=== PATIENT | female | born 1955 | race Caucasian/White ===

== ENCOUNTER 2022-09-12 19:42 | Inpatient (IN) | payer OTHER ==
[~2022-09-12 19:42] MED LIST: Heparin 1,000 UNITS/ML VIAL ONE
[2022-09-12] MEDS ORDERED: Bupivacaine PF 0.5% 30 ML VIAL ONE (20:21)
[2022-09-12] MEDS ORDERED: Bacitracin Zinc Ointment 30 gm TUBE ONE (20:21)
[2022-09-12] MEDS ORDERED: Neomycin-Polymyxin 1 ML AMP ONE (20:21)
[2022-09-12] MEDS ORDERED: Midazolam HCl 2 mg/2 ml Vial ONE (20:25)
[2022-09-12] MEDS ORDERED: fentaNYL PF 100 MCG/2 ML SYRINGE ONE (20:26)
[2022-09-12] MEDS ORDERED: Ondansetron PF 4 MG/2 ML Vial ONE (21:16)
[2022-09-12] MEDS ORDERED: PROPOFOL 200 MG/20 ML VIAL ONE (21:16)
[2022-09-12] MEDS ORDERED: Ketorolac Tromethamine 30 MG/ML VIAL ONE (21:16)
[2022-09-12] MEDS ORDERED: Phenylephrine 10 MG/ML VIAL ONE (21:16)
[2022-09-12] MEDS ORDERED: Ondansetron ODT 4 MG TAB PO PRN (21:41)
[2022-09-12] MEDS ORDERED: Senokot S 8.6-50 MG TAB PO PRN (21:41)
[2022-09-12] MEDS ORDERED: Acetaminophen 325 MG TAB PO PRN (21:41)
[2022-09-12] MEDS ORDERED: Piperacillin/Tazobactam 4.5 GM in Sodium Chloride 0.9% 100 ML IVPB SCH (22:00)
[2022-09-12] MEDS ORDERED: TETANUS, DIPHTHERIA TOX,ADULT (TDVAX) 0.5 ML VIAL IM ONE (22:39)
[2022-09-12] MEDS ORDERED: Milk Of Magnesia 30 ML UDCUP PO PRN (22:39)
[2022-09-12] MEDS ORDERED: Promethazine HCl 25 MG/ML VIAL IM PRN (22:39)
[2022-09-12] MEDS ORDERED: Bisacodyl 10 MG SUPP PR PRN (22:39)
[2022-09-12] MEDS ORDERED: traMADol HCl 50 MG TAB PO PRN (22:39)
[2022-09-12] MEDS ORDERED: Ondansetron PF 4 MG/2 ML Vial IVP PRN (22:39)
[2022-09-12] MEDS ORDERED: Meperidine HCl/PF 25 MG/ML VIAL IM PRN (22:42)
[2022-09-12] MEDS ORDERED: Communication Order-Pharmacy FS PRN (22:45)
[2022-09-12 22:51] LABS: #Eosinphils 0.1 thou/uL (0.0-0.7); #Lymphocytes 0.8 thou/uL (1.20-3.40); #Monocytes 1.2 thou/uL (0.11-0.59); #Neutrophils 12.7 thou/uL (1.40-6.50); %Lymphocytes 5.2 % (21.0-51.0); %Monocytes 8.1 % (0.0-10.0); %Neutrophils 85.7 % (42.0-75.0); Hemoglobin 12.1 g/dL (12.0-16.0); Mean Corpuscular HGB CONC 31.8 g/dL (32.0-36.0); Mean Corpuscular Hemoglobin 31.6 pg (27.0-31.0); Mean Corpuscular Volume 99.4 fl (78.0-98.0); Mean Platelet Volume 7.4 fL (7.4-10.4); Platelet Count 263 10x3/uL (130-400); RBC Distribution Width 13.1 % (11.5-14.5); Red Blood Cell (RBC) Count 3.84 mill/uL (4.20-5.40); White Blood Cell (WBC) Count 14.9 10x3/uL (4.8-10.8)
[2022-09-12] MEDS ORDERED: Aspirin 81 mg Enteric Coated Tablet PO SCH (23:00)
[2022-09-12 23:07] LABS: Anion Gap 13 mmol/L (10-20); BUN (Urea Nitrogen) 18 mg/dL (9.8-20.1); Calc. Creatinine Clearance 0 mL/min (70-130); Calcium 8.4 mg/dL (7.8-10.44); Carbon Dioxide 22 mmol/L (23-31); Chloride 101 mmol/L (98-107); Estimated GFR 87; Glucose 113 mg/dL (80-115); Potassium 3.9 mmol/L (3.5-5.1); Sodium 132 mmol/L (136-145)
[2022-09-12 23:40] LABS: MDiff Complete? YES
[2022-09-12 23:41] LABS: Band 30 % (5-11); Hypochromia SLIGHT = 6-15 cells (100X) (0-5/hpf); Lymphocytes 8 % (21-51); Macrocytosis SLIGHT = 6-15 cells (100X) (0-5/hpf); Monocytes 7 % (0-10); Neutrophil 55 % (42-75); Ovalocytes SLIGHT = 2-5 cells (100X) (0-1/hpf); Platelet Morphology Comment Appears Adequate; Polychromasia SLIGHT = 2-3 cells (100X) (0-2/hpf)
[2022-09-12 23:47] VITALS: BMI 21.5
[2022-09-12] MEDS ORDERED: Dextrose 50% Abboject 50 ML SYRINGE SLOW IVP PRN (23:52)
[2022-09-12] MEDS ORDERED: HumaLOG 300 UNITS/3 ML VIAL SC PRN (23:52)
[2022-09-12] MEDS ORDERED: Dextrose 5% in Water 1,000 ML IV PRN (23:52)
[2022-09-13] MEDS ORDERED: Pen G 2.5 MILL.UNITS/50 ML BAG IVPB SCH (01:00)
[2022-09-13] MEDS: Penicillin G Potassium 2.5 MILL.UNITS in Sodium Chloride 0.9% 50 ML IVPB SCH ×6 (01:02→21:11)
[2022-09-13] MEDS ORDERED: Morphine 4 MG/ML VIAL ONE ×2 (01:04→14:01)
[2022-09-13] MEDS: Morphine 4 MG/ML VIAL SLOW IVP PRN ×2 (01:05→14:02)
[2022-09-13] MEDS ORDERED: Promethazine HCl 25 MG/ML VIAL ONE (01:14)
[2022-09-13] MEDS ORDERED: HYDROcodone/Acetaminophen 5/325 mg Tablet ONE ×3 (01:16→08:44)
[2022-09-13] MEDS: HYDROcodone/Acetaminophen 5/325 mg Tablet PO PRN ×4 (01:19→18:31)
[2022-09-13] MEDS: Vancomycin 1 GM in Premix Bag 1 BAG IVPB SCH (01:55)
[2022-09-13] MEDS ORDERED: Ketorolac Tromethamine 30 MG/ML VIAL ONE (04:54)
[2022-09-13] MEDS: Ketorolac Tromethamine 30 MG/ML VIAL IVP PRN ×2 (04:55→16:13)
[2022-09-13] MEDS: Gentamicin 80 MG/2 ML VIAL IM SCH ×3 (05:46→21:12)
[2022-09-13] MEDS ORDERED: FENTANYL 50 MCG/ML 1 ML VIAL ONE (07:31)
[2022-09-13 07:40] LABS: #Eosinphils 0.2 thou/uL (0.0-0.7); #Lymphocytes 0.7 thou/uL (1.20-3.40); #Monocytes 0.8 thou/uL (0.11-0.59); %Eosinophils 1.7 % (0.0-10.0); %Lymphocytes 5.4 % (21.0-51.0); %Monocytes 6.2 % (0.0-10.0); %Neutrophils 86.7 % (42.0-75.0); Mean Corpuscular HGB CONC 31.7 g/dL (32.0-36.0); Mean Corpuscular Hemoglobin 31.3 pg (27.0-31.0); Mean Corpuscular Volume 98.9 fl (78.0-98.0); Mean Platelet Volume 7.2 fL (7.4-10.4); Platelet Count 253 10x3/uL (130-400); RBC Distribution Width 13.1 % (11.5-14.5); White Blood Cell (WBC) Count 12.7 10x3/uL (4.8-10.8)
[2022-09-13] MEDS: FENTANYL 50 MCG/ML 1 ML VIAL SLOW IVP PRN (07:53)
[2022-09-13] MEDS ORDERED: traMADol HCl 50 MG TAB ONE (07:56)
[2022-09-13] MEDS ORDERED: Aspirin Chewable 81 MG TAB ONE (07:57)
[2022-09-13] MEDS ORDERED: Famotidine 20 MG TAB ONE (08:17)
[2022-09-13] MEDS: Aspirin 81 mg Enteric Coated Tablet PO SCH ×2 (08:47→20:10)
[2022-09-13] MEDS ORDERED: VANCOMYCIN 1.25 GM/250 ML BAG 1.25 GM in Premix Bag 1 BAG IVPB SCH (09:00)
[2022-09-13] MEDS ORDERED: Vancomycin 1.25 GM in Premix Bag 1 BAG IVPB SCH (09:00)
[2022-09-13] MEDS ORDERED: Famotidine 20 MG TAB PO SCH (09:00)
[2022-09-13] MEDS: Gabapentin 400 MG CAP PO SCH ×2 (14:03→20:10)
[2022-09-13] MEDS: Atorvastatin Calcium 20 MG TAB PO SCH (20:10)
[2022-09-14] MEDS: Penicillin G Potassium 2.5 MILL.UNITS in Sodium Chloride 0.9% 50 ML IVPB SCH ×5 (01:15→17:38)
[2022-09-14] MEDS: Vancomycin 1 GM in Premix Bag 1 BAG IVPB SCH (02:05)
[2022-09-14] MEDS: Gentamicin 80 MG/2 ML VIAL IM SCH ×2 (05:26→13:10)
[2022-09-14] MEDS: Levothyroxine Sodium 50 MCG TAB PO SCH (05:26)
[2022-09-14] MEDS: Ketorolac Tromethamine 30 MG/ML VIAL IVP PRN ×3 (05:26→20:00)
[2022-09-14 05:57] LABS: Anion Gap 12 mmol/L (10-20); BUN (Urea Nitrogen) 11 mg/dL (9.8-20.1); Calc. Creatinine Clearance 71 mL/min (70-130); Calcium 8.7 mg/dL (7.8-10.44); Carbon Dioxide 26 mmol/L (23-31); Chloride 104 mmol/L (98-107); Estimated GFR 96; Glucose 99 mg/dL (80-115); Magnesium 1.8 mg/dL (1.6-2.6); Potassium 4.4 mmol/L (3.5-5.1); Sodium 138 mmol/L (136-145)
[2022-09-14 07:48] LABS: Hemoglobin 11.9 g/dL (12.0-16.0); Mean Corpuscular HGB CONC 32.3 g/dL (32.0-36.0); Mean Corpuscular Hemoglobin 31.4 pg (27.0-31.0); Mean Corpuscular Volume 97.2 fl (78.0-98.0); Mean Platelet Volume 7.3 fL (7.4-10.4); Platelet Count 260 10x3/uL (130-400); RBC Distribution Width 13.1 % (11.5-14.5); White Blood Cell (WBC) Count 13.3 10x3/uL (4.8-10.8)
[2022-09-14 08:19] LABS: Band 23 % (5-11); Eosinophils 1 % (0-10); Lymphocytes 9 % (21-51); MDiff Complete? YES; Monocytes 2 % (0-10); Neutrophil 64 % (42-75); Platelet Morphology Comment Appears Adequate; Polychromasia SLIGHT = 2-3 cells (100X) (0-2/hpf)
[2022-09-14] MEDS: Gabapentin 400 MG CAP PO SCH ×3 (08:29→20:01)
[2022-09-14] MEDS: DULoxetine 60 MG CAP PO SCH (08:29)
[2022-09-14] MEDS: Aspirin 81 mg Enteric Coated Tablet PO SCH ×2 (08:30→20:00)
[2022-09-14] MEDS: Lisinopril 2.5 MG TAB PO SCH (08:32)
[2022-09-14] MEDS: Atorvastatin Calcium 20 MG TAB PO SCH (20:01)
[2022-09-14] MEDS: HumaLOG 300 UNITS/3 ML VIAL SC PRN (20:36)
[2022-09-14] MEDS: Penicillin G Potassium 4 MILL.UNITS in Sodium Chloride 0.9% 50 ML IVPB SCH (21:06)
[2022-09-14] MEDS: Clindamycin/D5W 600 MG in Premix Bag 1 BAG IVPB SCH (21:06)
[2022-09-14] MEDS: FENTANYL 50 MCG/ML 1 ML VIAL SLOW IVP PRN (22:41)
[2022-09-15] MEDS: Penicillin G Potassium 4 MILL.UNITS in Sodium Chloride 0.9% 50 ML IVPB SCH ×6 (01:07→21:53)
[2022-09-15 01:22] LABS: Vancomycin, Trough 3.4 ug/mL
[2022-09-15] MEDS: Clindamycin/D5W 600 MG in Premix Bag 1 BAG IVPB SCH ×3 (05:12→21:53)
[2022-09-15] MEDS: Levothyroxine Sodium 50 MCG TAB PO SCH (06:45)
[2022-09-15 08:18] LABS: #Eosinphils 0.3 thou/uL (0.0-0.7); #Lymphocytes 0.8 thou/uL (1.20-3.40); #Monocytes 0.7 thou/uL (0.11-0.59); #Neutrophils 7.2 thou/uL (1.40-6.50); %Basophils 0.3 % (0.0-1.0); %Lymphocytes 8.6 % (21.0-51.0); %Monocytes 8.2 % (0.0-10.0); Hemoglobin 11.9 g/dL (12.0-16.0); Mean Corpuscular HGB CONC 31.9 g/dL (32.0-36.0); Mean Corpuscular Hemoglobin 31.1 pg (27.0-31.0); Mean Corpuscular Volume 97.5 fl (78.0-98.0); Mean Platelet Volume 6.9 fL (7.4-10.4); Platelet Count 290 10x3/uL (130-400); RBC Distribution Width 13.2 % (11.5-14.5); Red Blood Cell (RBC) Count 3.84 mill/uL (4.20-5.40); White Blood Cell (WBC) Count 8.9 10x3/uL (4.8-10.8)
[2022-09-15] MEDS: Aspirin 81 mg Enteric Coated Tablet PO SCH ×2 (08:43→21:54)
[2022-09-15] MEDS: DULoxetine 60 MG CAP PO SCH (08:43)
[2022-09-15] MEDS: Lisinopril 2.5 MG TAB PO SCH (08:43)
[2022-09-15] MEDS: Gabapentin 400 MG CAP PO SCH ×3 (08:43→21:53)
[2022-09-15] MEDS: Morphine 4 MG/ML VIAL SLOW IVP PRN (09:09)
[2022-09-15] MEDS ORDERED: Clindamycin/D5W 600 mg/50 ml Premix Bag ONE (13:52)
[2022-09-15] MEDS ORDERED: Bacitracin Zinc Ointment 30 gm TUBE ONE (14:35)
[2022-09-15] MEDS ORDERED: Bupivacaine PF 0.5% 30 ML VIAL ONE (14:35)
[2022-09-15] MEDS ORDERED: Midazolam HCl 2 mg/2 ml Vial ONE (14:55)
[2022-09-15] MEDS ORDERED: fentaNYL PF 100 MCG/2 ML SYRINGE ONE (15:35)
[2022-09-15] MEDS ORDERED: Dexamethasone 20 MG/5 ML VIAL ONE (15:46)
[2022-09-15] MEDS ORDERED: Ondansetron PF 4 MG/2 ML Vial ONE (15:46)
[2022-09-15] MEDS ORDERED: PROPOFOL 200 MG/20 ML VIAL ONE (15:46)
[2022-09-15] MEDS ORDERED: Ketorolac Tromethamine 30 MG/ML VIAL IVP SCH (16:30)
[2022-09-15] MEDS ORDERED: FENTANYL 50 MCG/ML 1 ML VIAL ONE (16:34)
[2022-09-15] MEDS ORDERED: Ketorolac Tromethamine 30 MG/ML VIAL ONE (16:34)
[2022-09-15] MEDS: Ketorolac Tromethamine 30 MG/ML VIAL IVP PRN (18:12)
[2022-09-15] MEDS: FENTANYL 50 MCG/ML 1 ML VIAL SLOW IVP PRN (21:53)
[2022-09-15] MEDS: Atorvastatin Calcium 20 MG TAB PO SCH (21:54)
[2022-09-15] MEDS: HumaLOG 300 UNITS/3 ML VIAL SC PRN (21:54)
[2022-09-16] MEDS: Penicillin G Potassium 4 MILL.UNITS in Sodium Chloride 0.9% 50 ML IVPB SCH ×6 (01:53→20:24)
[2022-09-16] MEDS: Ketorolac Tromethamine 30 MG/ML VIAL IVP PRN ×3 (01:59→16:03)
[2022-09-16] MEDS: Clindamycin/D5W 600 MG in Premix Bag 1 BAG IVPB SCH ×3 (05:16→21:35)
[2022-09-16] MEDS: Levothyroxine Sodium 50 MCG TAB PO SCH (05:17)
[2022-09-16] MEDS: Lisinopril 2.5 MG TAB PO SCH (09:02)
[2022-09-16] MEDS: Aspirin 81 mg Enteric Coated Tablet PO SCH ×2 (09:02→20:23)
[2022-09-16] MEDS: DULoxetine 60 MG CAP PO SCH (09:02)
[2022-09-16] MEDS: Gabapentin 400 MG CAP PO SCH ×3 (09:02→20:24)
[2022-09-16] MEDS: Morphine 4 MG/ML VIAL SLOW IVP PRN (09:28)
[2022-09-16] MEDS: Atorvastatin Calcium 20 MG TAB PO SCH (20:23)
[2022-09-16] MEDS: HYDROcodone/Acetaminophen 5/325 mg Tablet PO PRN (20:28)
[2022-09-17] MEDS: Ketorolac Tromethamine 30 MG/ML VIAL IVP PRN ×3 (03:09→21:01)
[2022-09-17] MEDS: Clindamycin/D5W 600 MG in Premix Bag 1 BAG IVPB SCH ×3 (05:14→21:00)
[2022-09-17] MEDS: Levothyroxine Sodium 50 MCG TAB PO SCH (05:14)
[2022-09-17] MEDS: HYDROcodone/Acetaminophen 5/325 mg Tablet PO PRN ×3 (05:20→21:00)
[2022-09-17] MEDS: Gabapentin 400 MG CAP PO SCH ×3 (10:10→21:01)
[2022-09-17] MEDS: Lisinopril 2.5 MG TAB PO SCH (10:10)
[2022-09-17] MEDS: DULoxetine 60 MG CAP PO SCH (10:10)
[2022-09-17] MEDS: Aspirin 81 mg Enteric Coated Tablet PO SCH ×2 (10:11→21:00)
[2022-09-17] MEDS: Morphine 4 MG/ML VIAL SLOW IVP PRN (10:44)
[2022-09-17 11:09] LABS: Anion Gap 10 mmol/L (10-20); BUN (Urea Nitrogen) 12 mg/dL (9.8-20.1); Calc. Creatinine Clearance 74 mL/min (70-130); Calcium 8.9 mg/dL (7.8-10.44); Carbon Dioxide 27 mmol/L (23-31); Chloride 102 mmol/L (98-107); Estimated GFR 98; Glucose 108 mg/dL (80-115); Potassium 4.3 mmol/L (3.5-5.1); Sodium 135 mmol/L (136-145)
[2022-09-17 11:27] LABS: Band 8 % (5-11); Eosinophils 4 % (0-10); Hemoglobin 11.5 g/dL (12.0-16.0); Lymphocytes 8 % (21-51); MDiff Complete? YES; Mean Corpuscular HGB CONC 31.9 g/dL (32.0-36.0); Mean Corpuscular Hemoglobin 31.1 pg (27.0-31.0); Mean Corpuscular Volume 97.3 fl (78.0-98.0); Mean Platelet Volume 6.9 fL (7.4-10.4); Metamyelocyte 2 % (0-0); Monocytes 22 % (0-10); Myelocyte 1 % (0-0); Neutrophil 49 % (42-75); Platelet Count 340 10x3/uL (130-400); Platelet Morphology Comment Appears Adequate; Polychromasia SLIGHT = 2-3 cells (100X) (0-2/hpf); RBC Distribution Width 12.9 % (11.5-14.5); Reactive Lymphocytes 3 % (0-10); Target Cells SLIGHT = 2-5 cells (100X) (0-1/hpf)
[2022-09-17] MEDS: Atorvastatin Calcium 20 MG TAB PO SCH (21:00)
[2022-09-18] MEDS: HYDROcodone/Acetaminophen 5/325 mg Tablet PO PRN ×2 (03:30→11:18)
[2022-09-18] MEDS: Levothyroxine Sodium 50 MCG TAB PO SCH (05:55)
[2022-09-18] MEDS: Clindamycin/D5W 600 MG in Premix Bag 1 BAG IVPB SCH ×4 (05:55→23:11)
[2022-09-18] MEDS: Acetaminophen/Codeine 30-300mg Tablet PO PRN ×2 (08:33→21:29)
[2022-09-18] MEDS: Lisinopril 2.5 MG TAB PO SCH (08:34)
[2022-09-18] MEDS: Gabapentin 400 MG CAP PO SCH ×3 (08:35→21:21)
[2022-09-18] MEDS: Aspirin 81 mg Enteric Coated Tablet PO SCH ×2 (08:35→21:22)
[2022-09-18] MEDS: DULoxetine 60 MG CAP PO SCH (08:36)
[2022-09-18] MEDS ORDERED: Bupivacaine PF 0.5% 30 ML VIAL ONE (16:17)
[2022-09-18] MEDS ORDERED: Bacitracin Zinc Ointment 30 gm TUBE ONE (16:17)
[2022-09-18] MEDS ORDERED: Neomycin-Polymyxin 1 ML AMP ONE (16:17)
[2022-09-18] MEDS ORDERED: Mineral Oil Sterile 10 ML VIAL ONE (16:17)
[2022-09-18] MEDS ORDERED: Penicillin G Potassium 4,000,000 UNITS in Syringe 0 ML IVPB SCH (17:00)
[2022-09-18] MEDS ORDERED: fentaNYL PF 100 MCG/2 ML SYRINGE ONE (17:26)
[2022-09-18] MEDS ORDERED: ePHEDrine 50 MG/ML VIAL ONE (17:41)
[2022-09-18] MEDS ORDERED: PROPOFOL 200 MG/20 ML VIAL ONE (17:41)
[2022-09-18] MEDS ORDERED: FENTANYL 50 MCG/ML 1 ML VIAL ONE ×3 (18:39→19:23)
[2022-09-18] MEDS: Morphine 4 MG/ML VIAL SLOW IVP PRN (20:06)
[2022-09-18] MEDS: Penicillin G Potassium 4 MILL.UNITS in Sodium Chloride 0.9% 100 ML IVPB SCH ×2 (21:05→21:26)
[2022-09-18] MEDS: Atorvastatin Calcium 20 MG TAB PO SCH (21:22)
[2022-09-19] MEDS: Penicillin G Potassium 4 MILL.UNITS in Sodium Chloride 0.9% 100 ML IVPB SCH ×6 (01:10→20:51)
[2022-09-19] MEDS: FENTANYL 50 MCG/ML 1 ML VIAL SLOW IVP PRN (01:13)
[2022-09-19] MEDS: Levothyroxine Sodium 50 MCG TAB PO SCH (06:15)
[2022-09-19] MEDS: Clindamycin/D5W 600 MG in Premix Bag 1 BAG IVPB SCH ×3 (06:15→20:50)
[2022-09-19] MEDS: Acetaminophen/Codeine 30-300mg Tablet PO PRN ×4 (06:25→17:57)
[2022-09-19] MEDS: DULoxetine 60 MG CAP PO SCH (08:12)
[2022-09-19] MEDS: Aspirin 81 mg Enteric Coated Tablet PO SCH ×2 (08:12→20:51)
[2022-09-19] MEDS: Lisinopril 2.5 MG TAB PO SCH (08:12)
[2022-09-19] MEDS: Gabapentin 400 MG CAP PO SCH ×3 (08:13→20:51)
[2022-09-19] MEDS: Atorvastatin Calcium 20 MG TAB PO SCH (20:51)
[2022-09-20] MEDS: Penicillin G Potassium 4 MILL.UNITS in Sodium Chloride 0.9% 100 ML IVPB SCH ×3 (00:01→08:36)
[2022-09-20] MEDS: Clindamycin/D5W 600 MG in Premix Bag 1 BAG IVPB SCH (05:24)
[2022-09-20] MEDS: Levothyroxine Sodium 50 MCG TAB PO SCH (05:25)
[2022-09-20] MEDS: Acetaminophen/Codeine 30-300mg Tablet PO PRN ×3 (05:29→10:06)
[2022-09-20 05:34] LABS: #Basophils 0.1 thou/uL (0.0-0.2); #Eosinphils 0.4 thou/uL (0.0-0.7); #Lymphocytes 1.7 thou/uL (1.20-3.40); #Monocytes 1.1 thou/uL (0.11-0.59); #Neutrophils 6.4 thou/uL (1.40-6.50); %Basophils 0.6 % (0.0-1.0); %Lymphocytes 17.4 % (21.0-51.0); Hemoglobin 12.2 g/dL (12.0-16.0); Mean Corpuscular HGB CONC 32.1 g/dL (32.0-36.0); Mean Corpuscular Hemoglobin 31.1 pg (27.0-31.0); Mean Corpuscular Volume 96.9 fl (78.0-98.0); Mean Platelet Volume 6.9 fL (7.4-10.4); Platelet Count 408 10x3/uL (130-400); RBC Distribution Width 13.1 % (11.5-14.5); Red Blood Cell (RBC) Count 3.94 mill/uL (4.20-5.40); White Blood Cell (WBC) Count 9.6 10x3/uL (4.8-10.8)
[2022-09-20 05:55] LABS: Anion Gap 13 mmol/L (10-20); BUN (Urea Nitrogen) 9 mg/dL (9.8-20.1); Calc. Creatinine Clearance 71 mL/min (70-130); Calcium 9.3 mg/dL (7.8-10.44); Carbon Dioxide 28 mmol/L (23-31); Chloride 101 mmol/L (98-107); Estimated GFR 96; Glucose 114 mg/dL (80-115); Potassium 4.9 mmol/L (3.5-5.1); Sodium 137 mmol/L (136-145)
[2022-09-20 08:18] VITALS: BP 101/66; TEMP 97.6
[2022-09-20] MEDS: Lisinopril 2.5 MG TAB PO SCH (08:36)
[2022-09-20] MEDS: Aspirin 81 mg Enteric Coated Tablet PO SCH (08:36)
[2022-09-20] MEDS: DULoxetine 60 MG CAP PO SCH (08:36)
[2022-09-20] MEDS: Gabapentin 400 MG CAP PO SCH (08:37)
== END 2022-09-20 10:15 | disposition home or self-care (01) | DRG 501 ==
LOC: ERS 19:42 → SDC 20:13 → PACU-TCU 23:11 → SJJU 09-13 15:21
PROVIDERS: ADMIT Internal Medicine; ATTEND Internal Medicine
PROC: 0LB80ZZ Excision of Left Hand Tendon, Open Approach (ICD-10-PCS; principal; 2022-09-12)
PROC: 01N50ZZ Release Median Nerve, Open Approach (ICD-10-PCS; 2022-09-12)
PROC: 02HV33Z Insertion of Infusion Device into Superior Vena Cava, Percutaneous Approach (ICD-10-PCS; 2022-09-13)
PROC: B548ZZA Ultrasonography of Superior Vena Cava, Guidance (ICD-10-PCS; 2022-09-13)
PROC: 0HRGXK3 Replacement of Left Hand Skin with Nonautologous Tissue Substitute, Full Thickness, External Approach (ICD-10-PCS; 2022-09-18)
PROC: 0KBB0ZZ Excision of Left Lower Arm and Wrist Muscle, Open Approach (ICD-10-PCS; 2022-09-18)
PROC: 0KBD0ZZ Excision of Left Hand Muscle, Open Approach (ICD-10-PCS; 2022-09-18)
DX: M65.842 Other synovitis and tenosynovitis, left hand (principal); E87.1 Hypo-osmolality and hyponatremia; L02.512 Cutaneous abscess of left hand; T82.868A Thrombosis due to vascular prosthetic devices, implants and grafts, initial encounter; I82.612 Acute embolism and thrombosis of superficial veins of left upper extremity; Y84.8 Other medical procedures as the cause of abnormal reaction of the patient, or of later complication, without mention of misadventure at the time of the procedure; G56.02 Carpal tunnel syndrome, left upper limb; E11.9 Type 2 diabetes mellitus without complications; B95.0 Streptococcus, group A, as the cause of diseases classified elsewhere; Z79.899 Other long term (current) drug therapy; Z79.1 Long term (current) use of non-steroidal anti-inflammatories (NSAID); Z79.890 Hormone replacement therapy
CPT/HCPCS: 36415; 36416; 36569; 80048; 80202; 83735; 84443; 85025; 87070; 87077; 87205; 90714; 97139; 99284; C1751; C9363-KX-JC; J1100; J1580; J1644; J1885; J2250; J2270; J2370; J2405; J2540; J2550; J2704; J3010; J3370; J3490; S0020; U0003; U0005

== ENCOUNTER 2022-10-10 12:54 | Day surgery (SDC) | payer OTHER ==
[2022-10-05 11:51] VITALS: BMI 21.5
[2022-10-10] MEDS ORDERED: Bacitracin Zinc Ointment 30 gm TUBE ONE (16:38)
[2022-10-10] MEDS ORDERED: Mineral Oil Sterile 10 ML VIAL ONE (16:38)
[2022-10-10] MEDS ORDERED: Thrombin 5000 UNITS/5 ML VIAL ONE (16:38)
[2022-10-10] MEDS ORDERED: Neomycin-Polymyxin 1 ML AMP ONE (16:38)
[2022-10-10] MEDS ORDERED: Bupivacaine 0.25% HCL 30 ML VIAL ONE (16:38)
[2022-10-10] MEDS ORDERED: Fentanyl 250 MCG/5 ML VIAL ONE (16:49)
[2022-10-10] MEDS ORDERED: Lidocaine 1% PF 5 ML VIAL ONE (17:08)
[2022-10-10] MEDS ORDERED: Ondansetron PF 4 MG/2 ML Vial ONE (17:08)
[2022-10-10] MEDS ORDERED: PROPOFOL 200 MG/20 ML VIAL ONE (17:08)
[2022-10-10] MEDS ORDERED: Dexamethasone 20 MG/5 ML VIAL ONE (17:08)
[2022-10-10] MEDS ORDERED: Ketorolac Tromethamine 30 MG/ML VIAL ONE (18:17)
[2022-10-10] MEDS ORDERED: HYDROcodone/Acetaminophen 5/325 mg Tablet ONE (19:10)
== END 2022-10-10 19:28 | disposition home or self-care (01) ==
LOC: SDC 12:54
PROVIDERS: ATTEND Orthopaedic Surgery Hand Surgery
PROC: 0HRGX74 Replacement of Left Hand Skin with Autologous Tissue Substitute, Partial Thickness, External Approach (ICD-10-PCS; principal; 2022-10-10)
DX: S61.201A Unspecified open wound of left index finger without damage to nail, initial encounter (principal); E11.9 Type 2 diabetes mellitus without complications; E78.00 Pure hypercholesterolemia, unspecified; Z85.810 Personal history of malignant neoplasm of tongue; Z87.891 Personal history of nicotine dependence; Z79.1 Long term (current) use of non-steroidal anti-inflammatories (NSAID); Z79.84 Long term (current) use of oral hypoglycemic drugs; Z79.890 Hormone replacement therapy; Z79.899 Other long term (current) drug therapy; Z98.890 Other specified postprocedural states
CPT/HCPCS: J1100; J1885; J2405; J2704; J3010; S0020

== ENCOUNTER 2022-11-06 14:18 | Inpatient (IN) | payer MEDICARE, OTHER ==
[2022-11-06 18:00] LABS: #Eosinphils 0.1 thou/uL (0.0-0.7); #Lymphocytes 1.1 thou/uL (1.20-3.40); #Monocytes 0.8 thou/uL (0.11-0.59); #Neutrophils 8.5 thou/uL (1.40-6.50); %Basophils 0.4 % (0.0-1.0); %Eosinophils 0.5 % (0.0-10.0); %Lymphocytes 10.2 % (21.0-51.0); %Monocytes 7.9 % (0.0-10.0); %Neutrophils 80.9 % (42.0-75.0); Hemoglobin 13.1 g/dL (12.0-16.0); Mean Corpuscular HGB CONC 32.6 g/dL (32.0-36.0); Mean Corpuscular Hemoglobin 32.6 pg (27.0-31.0); Mean Platelet Volume 6.5 fL (7.4-10.4); Platelet Count 351 10x3/uL (130-400); RBC Distribution Width 12.4 % (11.5-14.5); Red Blood Cell (RBC) Count 4.02 mill/uL (4.20-5.40); White Blood Cell (WBC) Count 10.5 10x3/uL (4.8-10.8)
[2022-11-06 19:29] LABS: SARS-CoV-2 NAA Rapid Test Not Detected (NotDetected)
[2022-11-07] MEDS ORDERED: Bacitracin 1 PK ONE (02:37)
[2022-11-07] MEDS ORDERED: Acetaminophen 500 MG TAB ONE (02:47)
[2022-11-07] MEDS ORDERED: Bacitracin Zinc Ointment 30 gm TUBE ONE (06:36)
[2022-11-07] MEDS ORDERED: Neomycin-Polymyxin 1 ML AMP ONE (06:36)
[2022-11-07] MEDS ORDERED: Bupivacaine PF 0.5% 30 ML VIAL ONE (06:36)
[2022-11-07] MEDS ORDERED: Fentanyl 100 MCG/2 ML VIAL SLOW IVP PRN (07:01)
[2022-11-07] MEDS ORDERED: fentaNYL PF 100 MCG/2 ML SYRINGE ONE ×2 (07:04)
[2022-11-07] MEDS ORDERED: Meperidine HCl/PF 25 MG/ML VIAL IM PRN (07:08)
[2022-11-07] MEDS ORDERED: Ondansetron PF 4 MG/2 ML Vial ONE (07:10)
[2022-11-07] MEDS ORDERED: Lidocaine 1% PF 5 ML VIAL ONE (07:10)
[2022-11-07] MEDS ORDERED: PROPOFOL 200 MG/20 ML VIAL ONE (07:10)
[2022-11-07] MEDS ORDERED: Fentanyl 250 MCG/5 ML VIAL ONE (08:01)
[2022-11-07] MEDS ORDERED: Vancomycin 1 GM/200 ML (FROZEN) BAG ONE (08:30)
[2022-11-07] MEDS ORDERED: TETANUS, DIPHTHERIA TOX,ADULT (TDVAX) 0.5 ML VIAL IM ONE (09:00)
[2022-11-07 09:42] VITALS: BMI 21.5
[2022-11-07] MEDS ORDERED: Morphine 4 MG/ML VIAL ONE (11:17)
[2022-11-07] MEDS ORDERED: HYDROcodone/Acetaminophen 5/325 mg Tablet ONE (11:22)
[2022-11-07] MEDS: Morphine 4 MG/ML VIAL SLOW IVP PRN (11:24)
[2022-11-07] MEDS: HYDROcodone/Acetaminophen 5/325 mg Tablet PO PRN ×3 (11:28→21:52)
[2022-11-07] MEDS: Aspirin 81 mg Enteric Coated Tablet PO SCH ×2 (12:39→19:52)
[2022-11-07] MEDS: Vancomycin 1 GM in Premix Bag 1 BAG IVPB SCH (20:03)
[2022-11-08] MEDS: HYDROcodone/Acetaminophen 5/325 mg Tablet PO PRN ×2 (02:08→12:43)
[2022-11-08 05:05] LABS: Vancomycin, Peak 16.2 ug/mL (20.0-40.0)
[2022-11-08] MEDS: Aspirin 81 mg Enteric Coated Tablet PO SCH ×2 (08:42→20:39)
[2022-11-08] MEDS: Ketorolac Tromethamine 30 MG/ML VIAL IVP PRN (08:42)
[2022-11-08] MEDS: Vancomycin 1 GM in Premix Bag 1 BAG IVPB SCH ×2 (09:10)
[2022-11-08] MEDS: Morphine 4 MG/ML VIAL SLOW IVP PRN (20:31)
[2022-11-08] MEDS: traMADol HCl 50 MG TAB PO PRN (20:39)
[2022-11-08 21:08] LABS: Vancomycin, Trough 12.5 ug/mL
[2022-11-08] MEDS ORDERED: SODIUM CHLORIDE IVPB SCH (21:30)
[2022-11-08] MEDS ORDERED: PENICILLIN POTASSIUM IVPB SCH (21:30)
[2022-11-08] MEDS ORDERED: Gentamicin Sulfate 80 MG in Premix Bag 1 BAG IVPB SCH (22:00)
[2022-11-09] MEDS: Vancomycin 1 GM in Premix Bag 1 BAG IVPB SCH ×3 (00:06→17:46)
[2022-11-09] MEDS: Acetaminophen/Codeine 30-300mg Tablet PO PRN ×2 (00:06→04:27)
[2022-11-09] MEDS ORDERED: SODIUM CHLORIDE IVPB SCH (01:00)
[2022-11-09] MEDS ORDERED: PENICILLIN POTASSIUM IVPB SCH (01:00)
[2022-11-09] MEDS: Gentamicin Sulfate 80 MG in Premix Bag 1 BAG IVPB SCH ×3 (04:34→21:01)
[2022-11-09] MEDS: PENICILLIN POTASSIUM IVPB SCH ×4 (06:46→17:46)
[2022-11-09] MEDS: SODIUM CHLORIDE IVPB SCH ×4 (06:46→17:46)
[2022-11-09 08:29] LABS: #Basophils 0.1 thou/uL (0.0-0.2); #Eosinphils 0.1 thou/uL (0.0-0.7); #Lymphocytes 1.2 thou/uL (1.20-3.40); #Monocytes 0.5 thou/uL (0.11-0.59); #Neutrophils 2.5 thou/uL (1.40-6.50); %Basophils 1.4 % (0.0-1.0); %Eosinophils 1.8 % (0.0-10.0); %Lymphocytes 27.8 % (21.0-51.0); %Monocytes 11.8 % (0.0-10.0); %Neutrophils 57.2 % (42.0-75.0); Hemoglobin 13.4 g/dL (12.0-16.0); Mean Corpuscular HGB CONC 32.7 g/dL (32.0-36.0); Mean Corpuscular Hemoglobin 32.6 pg (27.0-31.0); Mean Corpuscular Volume 99.8 fl (78.0-98.0); Mean Platelet Volume 6.7 fL (7.4-10.4); Platelet Count 367 10x3/uL (130-400); RBC Distribution Width 12.2 % (11.5-14.5); Red Blood Cell (RBC) Count 4.12 mill/uL (4.20-5.40); White Blood Cell (WBC) Count 4.3 10x3/uL (4.8-10.8)
[2022-11-09] MEDS: Aspirin 81 mg Enteric Coated Tablet PO SCH ×2 (09:07→21:01)
[2022-11-09] MEDS: HYDROcodone/Acetaminophen 5/325 mg Tablet PO PRN ×3 (09:09→21:02)
[2022-11-09] MEDS ORDERED: Ondansetron PF 4 MG/2 ML Vial IVP PRN (16:16)
[2022-11-09] MEDS ORDERED: Neomycin-Polymyxin 1 ML AMP ONE (17:48)
[2022-11-09] MEDS ORDERED: Bupivacaine PF 0.5% 30 ML VIAL ONE (17:48)
[2022-11-09] MEDS ORDERED: Bacitracin Zinc Ointment 30 gm TUBE ONE (17:48)
[2022-11-09] MEDS ORDERED: fentaNYL PF 100 MCG/2 ML SYRINGE ONE (17:49)
[2022-11-09] MEDS ORDERED: Famotidine/PF 20 mg/2ml Vial ONE (18:16)
[2022-11-09] MEDS ORDERED: PROPOFOL 200 MG/20 ML VIAL ONE (18:21)
[2022-11-09] MEDS ORDERED: Dexamethasone 20 MG/5 ML VIAL ONE (18:21)
[2022-11-09] MEDS ORDERED: Lidocaine 1% PF 5 ML VIAL ONE (18:21)
[2022-11-09] MEDS ORDERED: Metoclopramide HCl 10 MG/2 ML VIAL ONE (18:21)
[2022-11-09] MEDS ORDERED: ePHEDrine 50 MG/ML VIAL ONE (18:21)
[2022-11-09] MEDS ORDERED: Ondansetron PF 4 MG/2 ML Vial ONE (18:21)
[2022-11-09] MEDS ORDERED: Ondansetron HCl/PF 4 MG/2 ML Vial IVP PRN (19:06)
[2022-11-09] MEDS ORDERED: Meperidine HCl/PF 25 MG/ML VIAL SLOW IVP PRN (19:06)
[2022-11-09] MEDS ORDERED: Ketorolac Tromethamine 30 MG/ML VIAL IVP PRN (19:06)
[2022-11-09] MEDS ORDERED: Promethazine HCl 25 MG/ML VIAL IM PRN (19:06)
[2022-11-09] MEDS ORDERED: Morphine Sulfate 2 MG/ML SYRINGE SLOW IVP PRN (19:06)
[2022-11-09] MEDS ORDERED: HYDROmorphone 2 MG/ML VIAL SLOW IVP PRN (19:06)
[2022-11-09 20:34] LABS: Anion Gap 16 mmol/L (10-20); BUN (Urea Nitrogen) 14 mg/dL (9.8-20.1); Calc. Creatinine Clearance 62 mL/min (70-130); Calcium 9.3 mg/dL (7.8-10.44); Carbon Dioxide 21 mmol/L (23-31); Chloride 100 mmol/L (98-107); Estimated GFR 87; Glucose 269 mg/dL (80-115); Potassium 4.7 mmol/L (3.5-5.1); Sodium 132 mmol/L (136-145)
[2022-11-09] MEDS ORDERED: Pen G 2.5 MILL.UNITS/50 ML BAG IVPB SCH (21:00)
[2022-11-10] MEDS: Penicillin G Potassium 2.5 MILL.UNITS in Sodium Chloride 0.9% 50 ML IVPB SCH ×5 (00:46→14:32)
[2022-11-10] MEDS: Vancomycin 1 GM in Premix Bag 1 BAG IVPB SCH (06:37)
[2022-11-10] MEDS: Aspirin 81 mg Enteric Coated Tablet PO SCH ×2 (08:41→21:20)
[2022-11-10] MEDS: Famotidine 20 MG TAB PO SCH (08:41)
[2022-11-10] MEDS ORDERED: Vancomycin 1 GM in Premix Bag 1 BAG IVPB SCH (09:00)
[2022-11-10 09:14] LABS: Anion Gap 15 mmol/L (10-20); BUN (Urea Nitrogen) 13 mg/dL (9.8-20.1); Calc. Creatinine Clearance 63 mL/min (70-130); Calcium 9.7 mg/dL (7.8-10.44); Carbon Dioxide 20 mmol/L (23-31); Chloride 102 mmol/L (98-107); Estimated GFR 90; Glucose 156 mg/dL (80-115); Potassium 4.2 mmol/L (3.5-5.1); Sodium 133 mmol/L (136-145)
[2022-11-10] MEDS: Ketorolac Tromethamine 30 MG/ML VIAL IVP PRN (11:11)
[2022-11-10] MEDS: Morphine 4 MG/ML VIAL SLOW IVP PRN (17:42)
[2022-11-10 17:51] LABS: Anion Gap 13 mmol/L (10-20); BUN (Urea Nitrogen) 19 mg/dL (9.8-20.1); Calc. Creatinine Clearance 49 mL/min (70-130); Calcium 9.4 mg/dL (7.8-10.44); Carbon Dioxide 23 mmol/L (23-31); Chloride 101 mmol/L (98-107); Estimated GFR 66; Glucose 167 mg/dL (80-115); Sodium 133 mmol/L (136-145)
[2022-11-10] MEDS: Ertapenem 1 GM in Sodium Chloride 0.9% 100 ML IVPB SCH (18:29)
[2022-11-10] MEDS ORDERED: Dextrose 5% in Water 1,000 ML IV PRN (19:45)
[2022-11-10] MEDS ORDERED: Dextrose 50% Abboject 50 ML SYRINGE IVP PRN (19:45)
[2022-11-10] MEDS ORDERED: Insulin Regular 300 UNITS/3 ML VIAL SC PRN (19:45)
[2022-11-10] MEDS: traMADol HCl 50 MG TAB PO PRN (23:59)
[2022-11-11] MEDS: Famotidine 20 MG TAB PO SCH (07:53)
[2022-11-11] MEDS: DULoxetine 30 MG CAP PO SCH (07:53)
[2022-11-11] MEDS: Aspirin 81 mg Enteric Coated Tablet PO SCH ×2 (07:54→20:18)
[2022-11-11] MEDS: Acetaminophen/Codeine 30-300mg Tablet PO PRN ×2 (08:04→20:18)
[2022-11-11] MEDS: Morphine 4 MG/ML VIAL SLOW IVP PRN (15:27)
[2022-11-11] MEDS: Ertapenem 1 GM in Sodium Chloride 0.9% 100 ML IVPB SCH (18:29)
[2022-11-12] MEDS: Acetaminophen/Codeine 30-300mg Tablet PO PRN ×4 (06:03→20:58)
[2022-11-12] MEDS: Morphine 4 MG/ML VIAL SLOW IVP PRN (09:19)
[2022-11-12] MEDS: DULoxetine 30 MG CAP PO SCH (09:19)
[2022-11-12] MEDS: Aspirin 81 mg Enteric Coated Tablet PO SCH ×2 (09:19→20:58)
[2022-11-12] MEDS: Famotidine 20 MG TAB PO SCH (09:19)
[2022-11-12] MEDS: Ertapenem 1 GM in Sodium Chloride 0.9% 100 ML IVPB SCH (17:38)
[2022-11-13] MEDS: DULoxetine 30 MG CAP PO SCH (08:02)
[2022-11-13] MEDS: Famotidine 20 MG TAB PO SCH (08:02)
[2022-11-13] MEDS: Aspirin 81 mg Enteric Coated Tablet PO SCH ×2 (08:02→20:36)
[2022-11-13] MEDS: Acetaminophen/Codeine 30-300mg Tablet PO PRN ×3 (09:13→21:40)
[2022-11-13] MEDS: Morphine 4 MG/ML VIAL SLOW IVP PRN ×2 (10:23→17:13)
[2022-11-13] MEDS: Ertapenem 1 GM in Sodium Chloride 0.9% 100 ML IVPB SCH (16:59)
[2022-11-14 05:12] LABS: Hemoglobin 12.9 g/dL (12.0-16.0); Mean Corpuscular HGB CONC 34.6 g/dL (32.0-36.0); Mean Corpuscular Hemoglobin 34.4 pg (27.0-31.0); Mean Corpuscular Volume 99.5 fl (78.0-98.0); Mean Platelet Volume 6.6 fL (7.4-10.4); Platelet Count 337 10x3/uL (130-400); Red Blood Cell (RBC) Count 3.76 mill/uL (4.20-5.40); White Blood Cell (WBC) Count 5.3 10x3/uL (4.8-10.8)
[2022-11-14 05:36] LABS: ALT (SGPT) 10 U/L (8-55); AST (SGOT) 13 U/L (5-34); Albumin 3.9 g/dL (3.4-4.8); Alkaline Phosphatase 47 U/L (40-110); Anion Gap 11 mmol/L (10-20); BUN (Urea Nitrogen) 31 mg/dL (9.8-20.1); Bilirubin, Total 0.2 mg/dL (0.2-1.2); Calc. Creatinine Clearance 65 mL/min (70-130); Calcium 9.8 mg/dL (7.8-10.44); Carbon Dioxide 29 mmol/L (23-31); Chloride 101 mmol/L (98-107); Estimated GFR 93; Globulin 2.8 g/dL (2.4-3.5); Glucose 103 mg/dL (80-115); Potassium 4.1 mmol/L (3.5-5.1); Protein, Total 6.7 g/dL (5.8-8.1); Sodium 137 mmol/L (136-145)
[2022-11-14] MEDS: Aspirin 81 mg Enteric Coated Tablet PO SCH (10:45)
[2022-11-14] MEDS: Meropenem 1 GM in Sodium Chloride 0.9% 100 ML IVPB SCH ×3 (14:50→17:08)
[2022-11-14] MEDS ORDERED: fentaNYL PF 100 MCG/2 ML SYRINGE ONE (14:52)
[2022-11-14] MEDS ORDERED: Bacitracin Zinc Ointment 30 gm TUBE ONE (14:54)
[2022-11-14] MEDS ORDERED: Dexamethasone 20 MG/5 ML VIAL ONE (15:13)
[2022-11-14] MEDS ORDERED: PROPOFOL 200 MG/20 ML VIAL ONE (15:13)
[2022-11-14] MEDS ORDERED: Lidocaine 1% PF 5 ML VIAL ONE (15:13)
[2022-11-14] MEDS ORDERED: Ondansetron PF 4 MG/2 ML Vial ONE (15:13)
[2022-11-14] MEDS ORDERED: ePHEDrine 50 MG/ML VIAL ONE (15:13)
[2022-11-14] MEDS: DULoxetine 30 MG CAP PO SCH (16:01)
[2022-11-14] MEDS: Famotidine 20 MG TAB PO SCH (16:01)
[2022-11-14] MEDS ORDERED: Ketorolac Tromethamine 30 MG/ML VIAL ONE (16:17)
[2022-11-14] MEDS ORDERED: PACU-Morphine 4MG/ML VIAL SLOW IVP PRN (16:17)
[2022-11-14] MEDS ORDERED: Ketorolac Tromethamine 30 MG/ML VIAL IVP PRN (16:17)
[2022-11-14] MEDS ORDERED: Promethazine HCl 25 MG/ML VIAL IM PRN (16:17)
[2022-11-14 17:19] VITALS: BP 124/75; TEMP 97.5
== END 2022-11-14 17:49 | disposition home or self-care (01) | DRG 983 ==
LOC: ERS 14:18 → ERHOLD 17:36 → MSONC 11-07 12:13 → OBSVTOIN 11-08 13:05 → SURG B 11-08 18:31
PROVIDERS: ADMIT Orthopaedic Surgery Hand Surgery; ATTEND Orthopaedic Surgery Hand Surgery
PROC: 0JDK0ZZ Extraction of Left Hand Subcutaneous Tissue and Fascia, Open Approach (ICD-10-PCS; 2022-11-07)
PROC: 0L980ZZ Drainage of Left Hand Tendon, Open Approach (ICD-10-PCS; 2022-11-07)
PROC: 0LB80ZZ Excision of Left Hand Tendon, Open Approach (ICD-10-PCS; principal; 2022-11-09)
PROC: 02HV33Z Insertion of Infusion Device into Superior Vena Cava, Percutaneous Approach (ICD-10-PCS; 2022-11-11)
PROC: B5181ZA Fluoroscopy of Superior Vena Cava using Low Osmolar Contrast, Guidance (ICD-10-PCS; 2022-11-11)
PROC: B548ZZA Ultrasonography of Superior Vena Cava, Guidance (ICD-10-PCS; 2022-11-11)
PROC: 0HDGXZZ Extraction of Left Hand Skin, External Approach (ICD-10-PCS; 2022-11-14)
DX: L02.512 Cutaneous abscess of left hand (principal); L03.012 Cellulitis of left finger; Z20.822 Contact with and (suspected) exposure to COVID-19; E11.9 Type 2 diabetes mellitus without complications; Z85.89 Personal history of malignant neoplasm of other organs and systems; Z79.899 Other long term (current) drug therapy; Z79.84 Long term (current) use of oral hypoglycemic drugs
CPT/HCPCS: 36415; 36416; 36569; 80048; 80053; 80202; 85025; 85027; 85652; 87040; 87070; 87205; 87811; 96365; 96375; 96376; 97139; 99284; G0378; J1100; J1335; J1580; J1815; J1885; J2185; J2270; J2405; J2540; J2704; J2765; J3010; J3370-JW; J3372; J3490; S0020; S0028; U0002